=== PATIENT | male | born 2000 | race African-American/Black ===

== ENCOUNTER 2025-01-07 08:46 | Emergency (ER) | payer BC ==
[2025-01-07] MEDS ORDERED: IBUPROFEN 400 MG TAB ONE (09:42)
[2025-01-07] MEDS ORDERED: methocarbamoL 750 MG TAB ONE (09:42)
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
[2025-01-07 10:44] VITALS: BP 148/94; TEMP 98.4; O2SAT 100
== END 2025-01-07 10:38 | disposition home or self-care (01) ==
LOC: ER 08:46
DX: S39.012A Strain of muscle, fascia and tendon of lower back, initial encounter (principal); M79.641 Pain in right hand; V03.90XA Pedestrian on foot injured in collision with car, pick-up truck or van, unspecified whether traffic or nontraffic accident, initial encounter; F17.210 Nicotine dependence, cigarettes, uncomplicated
CPT/HCPCS: 74176; 99283